=== PATIENT | female | born 1965 | race Caucasian/White ===

== ENCOUNTER 2019-08-05 02:22 | Emergency (ER) | payer OTHER ==
[~2019-08-05] VITALS: Ht 170.2 cm; Wt 59.9 kg
--- NOTE | 2019-08-05 02:32 | NUR ---
ED Nurse Note: Pt ambulated into ed from home CO burning in eyes bilaterally. Pt states that she has been using new eye cream and may have placed cream too close to eyes. pt states she was sleeping and was woken by a burning sensation and was unable to see or open her eyes. Pt states that pain remains in eyes and on eyelids only. Pt aao x 4, ambulatory with steady gait. Pt visual check 20/50 RE, 20/30 LE. Awaiting ERMD at bedside. Addendum: 08/05/19 at 0239 by ALL ED Nurse Note: Pt ambulated into ed from home CO burning in eyes bilaterally. Pt states that she has been using new eye cream and may have placed cream too close to eyes. pt states she was sleeping and was woken by a burning sensation and was unable to see or open her eyes. Pt states that pain remains in eyes and on eyelids only. redness on affected area noted. Pt aao x 4, ambulatory with steady gait. Pt visual check 20/50 RE, 20/30 LE. Awaiting ERMD at bedside.
--- NOTE | 2019-08-05 02:37 | NUR ---
ED Nurse Note: ERMD at bedside
[2019-08-05] MEDS ORDERED: Fluorescein Strips ONE (02:45)
[2019-08-05] MEDS ORDERED: Fluorescein Strips BOTH EYES ONE (02:45)
--- NOTE | 2019-08-05 02:45 | NUR ---
ED Nurse Note: ERMD at bedside for secondary assessment
--- NOTE | 2019-08-05 02:50 | NUR ---
ED Nurse Note: Irrigation provided for eyes bilaterally. Pt stated noticeable improvement in vision and decreased blurriness. Will continue to monitor.
[2019-08-05] MEDS ORDERED: POLYTRIM OP SOL10 ML OPHTHALM (03:05)
[2019-08-05] MEDS ORDERED: NORCO 5-325 TA1 EAC1 ORAL (03:05)
--- NOTE | 2019-08-05 03:05 | Emergency Room Report ---
History of Present Illness General Chief Complaint: Eye Problems Source: Patient Present Illness HPI This a 53-year-old female with no past medical history. She presents with chief complaint of bilateral eye pain. Onset tonight during sleep. She does not wear contacts. She states she normally put a facial cream on before she go to sleep. She woke up with pain. It got worse when she tried to put eyedrops in it. Pain is 8 out of 10. Worse with lights. Worse with blinking. Better with rest. Denies any trauma. Denies any foreign body. 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 Patient History Past Medical History: see triage record, old chart reviewed Past Surgical History: none Pertinent Family History: none Social History: Denies: smoking Now: No Immunizations: other Reviewed Nursing Documentation: PMH: Agreed; PSxH: Agreed Nursing Documentation-PMH Past Medical History: No Stated History Review of Systems Eye: Denies: eye pain, blurred vision ENT: Reports: ear pain; Denies: nose congestion, throat swelling Respiratory: Denies: cough, shortness of breath Cardiovascular: Denies: chest pain, palpitations Gastrointestinal: Denies: abdominal pain, diarrhea, nausea, vomiting Musculoskeletal: Denies: back pain, joint pain Skin: Denies: rash Neurological: Denies: headache, numbness Endocrine: Denies: increased thirst, increased urine Hematologic/Lymphatic: Denies: easy bruising All Other Systems: negative except mentioned in HPI Physical Exam Vital Signs Date Time Temp Pulse Resp B/P (MAP) Pulse Ox O2 Delivery O2 Flow Rate FiO2 08/05/19 02:25 98.1 68 18 96 Room Air Vitals normal Sp02 EP Interpretation: reviewed, normal General Appearance: well appearing, no apparent distress, alert Head: normocephalic, atraumatic Eyes: bilateral eye PERRL, bilateral eye EOMI, bilateral eye other - Conjunctiva injected. Sclera injected. No foreign body. No corneal abrasion. ENT: hearing grossly normal, normal pharynx Neck: full range of motion, supple, no meningismus Respiratory: chest non-tender, lungs clear, normal breath sounds Cardiovascular #1: regular rate, rhythm, no murmur Gastrointestinal: normal bowel sounds, non tender, no mass, no organomegaly, no bruit, non-distended Musculoskeletal: back normal, normal range of motion, gait/station normal Psychiatric: mood/affect normal Medical Decision Making Diagnostic Impression: Primary Impression: Conjunctivitis Qualified Codes: H10.9 - Unspecified conjunctivitis ER Course Patient with bilateral eye pain. This could be a chemical conjunctivitis. I see no foreign body or globe rupture. May be early viral or bacterial infection. She felt better after irrigating with a [place] lens. Will discharge home. Last Vital Signs Date Time Temp Pulse Resp B/P (MAP) Pulse Ox O2 Delivery O2 Flow Rate FiO2 08/05/19 02:32 98.1 68 18 96 Room Air Status: improved Disposition: HOME, SELF-CARE Condition: Stable Scripts Hydrocodone Bit/Acetaminophen 5-325* (NORCO 5-325 TABLET*) 1 Each Tablet 1 TAB ORAL Q6H PRN for FOR PAIN, #10 TAB 0 Refills Prov: Bebo Lira MD 08/05/19 Polymyxin/Trimethoprim (Polytrim Eye Drops) 10 Ml Drops 2 DROP OPHTHALM THREE TIMES A DAY, #1 EA Instill in affected eye for 7 days Prov: Bebo Lira MD 08/05/19 Referrals: NOT CHOSEN IPA/,REFERRING (PCP) Patient Instructions: Chemical Conjunctivitis, [id number] Additional Instructions: Follow-up your doctor in 2 to 3 days if not better. You may need a referral to see an eye doctor. Do not rub your eyes. Do not use Visine or over-the- counter eyedrops. Return if worse. Bebo Lira MD August 05, 2019 03:05
[2019-08-05 03:08] VITALS: BP 127/73
--- NOTE | 2019-08-05 03:08 | NUR ---
ER DISCHARGE NOTE: Patient is cleared to be discharged home per ERMD, pt is aox4, on room air, with stable vital signs. pt was given dc and prescription instructions, pt was able to verbalize understanding, pt id band removed. pt is able to ambulate with steady gait. pt took all belongings.
== END 2019-08-05 03:08 | disposition home or self-care (01) ==
LOC: EMR 02:47
DX: H10.9 Unspecified conjunctivitis (principal)
CPT/HCPCS: 99283